=== PATIENT | male | born 1955 | race Caucasian/White ===

== ENCOUNTER → 2019-07-16 12:55 | Outpatient (CLI) | payer MEDICARE, SELFPAY ==
--- NOTE | 2019-07-16 13:05 | RAD_ITS ---
STUDY: SWALLOWING STUDY REASON FOR EXAM: Male, 64 years old. Dysphagia. TECHNIQUE: The examination was performed with Speech Pathology in attendance. Under fluoroscopic observation, the patient ingested thin barium, thick barium, barium pudding, and barium coated cracker. FLUOROSCOPY TIME: 1:25 minutes/seconds. [id number] images were obtained. RADIOLOGIST INVOLVEMENT: Radiologist was present and providing direct supervision. COMPARISON: None. FINDINGS: The following was observed during swallowing of the various mixtures of barium: Thin Barium: Transient penetration with ejection upon ingestion of thin liquids. Barium Pudding: There was no evidence of aspiration or laryngeal penetration. Barium Coated Cracker: There was no evidence of aspiration or laryngeal penetration. RAD/Swallowing Function w/Video IMPRESSION: Transient penetration with ejection upon ingestion of thin liquids. The swallow study findings were discussed with the patient by the speech pathologist at the conclusion of the examination. Please see speech pathology report for more information and recommendations. Electronically Signed: Kale Sarmiento, at 13:51 EDT , Service support ,
--- NOTE | 2019-07-16 13:07 | SP.MBSS_ITS ---
PRIMARY / SECONDARY DIAGNOSIS: Aspiration (T17.920A) REFERRING PHYSICIAN: Dr. Mccracken CURRENT DIET: regular textures/thin liquids DENTITION: natural dentition w/ permanent caps MENTAL STATUS: WFL for participation in MBS RESPIRATORY STATUS: oxygenating on room air PREVIOUS MODIFIED BARIUM SWALLOW STUDY: n/a REASON FOR REFERRAL: The patient was referred by Dr. Darrel Mccracken w/ a referring diagnosis of Aspiration. The patient reports that he has had pneumonia twice within the past 1.5 years w/ the most recent occurrence approximately 6 months ago. The patient has GERD which he reports to be well controlled w/ medication and sleeps on an adjustable bed inclined at 45-75 degrees. Additionally, an intermittent wet vocal quality was noted by this QUALITY CONTROL ASSISTANT during review of history w/ the patient reporting that he is a chronic throat clearer d/t sensation of ?tickling in his throat? along w/ ?gurgling? in throat when sleeping at night. MEDICAL HISTORY: limited history provided by patient GERD, arthritis s/p joint replacements, recurrent pneumonia STUDY FINDINGS: Patient participated in a Modified Barium Swallow (MBS) study on 07/16/2019. Dr. Sarmiento was the radiologist present for this evaluation. This study was recorded in the lateral view and images were sent to PACs for storage. The following consistencies were presented to this patient for analysis of oropharyngeal swallow function: thin liquid liquid, pudding and regular texture Janay Doone shortbread cookie. Results of the MBS are as follows: PENETRATION / ASPIRATION SCALE (SCHAEFFER): 1 = does not enter airway 2 = enters airway/above vocal folds/ejected 3 = enters airway/above vocal folds/not ejected 4 = enters airway/contacts vocal folds/ejected 5 = enters airway/contacts vocal folds/not ejected 6 = enters airway/below vocal folds/ejected 7 = enters airway/below vocal folds/not ejected despite effort 8 = enters airway/below vocal folds/no effort PENETRATION / ASPIRATION SCALE (SCORE): 1. Thin liquid 5mL via spoon: 1 2. Thin liquid 5mL via spoon: 1 3. Thin liquid single sip via cup (large volume noted): 2 4. Thin liquid single sip via cup (instructed to take smaller sip): 2 5. Thin liquid single sip via straw: 2 6. Thin liquid sequential swallows via cup: 2 7. Thin liquid single sip via cup w/ chin tuck: 2 8. Puddin 9. ? shortbread cookie coated in barium puddin 10. Thin liquid single sip via cup (instructed to take a very small sip): 6 IMPRESSION ORAL PHASE CHARACTERIZED BY: LABIAL SEAL: no labial escape TONGUE CONTROL DURING BOLUS MANIPULATION: cohesive bolus between tongue to palatal seal BOLUS PREPARATION / MASTICATION: timely and efficient chewing and mashing BOLUS TRANSPORT / LINGUAL MOTION: brisk tongue motion ORAL RESIDUE: trace residue lining oral structures PHARYNGEAL PHASE CHARACTERIZED BY: INITIATION OF PHARYNGEAL SWALLOW: bolus head in pyriforms at first hyoid excursion SOFT PALATE ELEVATION: no bolus between soft palate and pharyngeal wall LARYNGEAL ELEVATION: partial superior movement of thyroid cartilage/partial approximation of arytenoids cartilage to epiglottic petiole ANTERIOR HYOID EXCURSION: complete anterior movement EPIGLOTTIC MOVEMENT: complete epiglottic inversion LARYNGEAL VESTIBULE CLOSURE AT HEIGHT OF SWALLOW: complete laryngeal vestibule closure with no air/contrast in laryngeal vestibule PHARYNGEAL STRIPPING WAVE: pharyngeal stripping wave present / complete PHARYNGOESOPHAGEAL SEGMENT OPENING: complete distension and complete duration with no obstruction of flow TONGUE BASE RETRACTION: trace column of contrast between tongue base and posterior pharyngeal wall PHARYNGEAL RESIDUE: trace residue within or on pharyngeal structures ESOPHAGEAL PHASE CHARACTERIZED BY: ESOPHAGEAL BOLUS CLEARANCE IN THE UPRIGHT POSITION: complete clearance; esophageal coating EFFECTS OF TREATMENT STRATEGIES ATTEMPTED: CHIN TUCK POSTURE = ineffective REDUCED LIQUID BOLUS SIZE = ineffective USE OF STRAW = ineffective INTERPRETATION OF RESULTS Patient presents with mild oropharyngeal dysphagia (R13.12). The oral phase is grossly within normal limits w/ sufficient oral containment of liquids and solids, timely mastication and prompt lingual motion for A-P bolus transit. The pharyngeal phase is primarily marked by delayed pharyngeal swallow onset timing resulting in suboptimal bolus location upon swallow onset contributing to consistent laryngeal vestibule penetration before and during the swallow across all liquid trials consumed, regardless of mode/rate of consumption or postural strategies implemented. One instance of scant penetration entered along the posterior wall of the laryngeal vestibule from the pyriform sinuses before swallow onset w/ trace contrast undercoating the vocal folds transiently before complete ejection w/ swallow completion. The esophageal phase was unremarkable. Compensatory strategies trialed under fluoroscopy, including reduction in liquid bolus volume, liquid consumption via cup vs. straw, chin tuck posture, were all found to be ineffective to improve laryngeal vestibule closure or swallow onset timing. Although the patient was not noted to aspirate during this study, it is possible that aspiration does occur intermittently due to the consistency of laryngeal vestibule penetration identified. If scant contrast were to remain w/in the laryngeal vestibule post deglutition, it is plausible that it could accumulate w/ across swallow and result in delayed aspiration. This could likely be the cause of the patient?s recurrent pneumonia/pulmonary changes, frequent throat clearing and wet vocal quality. RECOMMENDATIONS DIET TEXTURE RECOMMENDATIONS: regular textures/thin liquids COMPENSATORY STRATEGIES RECOMMENDED: seated upright at 90 degrees during PO intake and remain upright for 30-60 minutes post meal (GERD precaution) NEED FOR REPEAT MBS: Yes, only if symptoms worsen and further objective assessment is warranted NEED FOR SKILLED SPEECH-LANGUAGE INTERVENTION TARGETING DYSPHAGIA: Yes, this patient requires intensive skilled speech-language intervention targeting training/instruction of recommended oropharyngeal strengthening exercises to facilitate improved swallow onset timing and laryngeal vestibule closure to be completed as an outpatient. ADDITIONAL COMMENTS/RECOMMENDATIONS: Results and recommendations were discussed with the Patient immediately following MBS completion. Images were also reviewed with the Patient to improve comprehension of the deficits in swallow function identified and the need for outpatient dysphagia services to improve swallow onset timing and laryngeal vestibule closure. The patient verbalized understanding and agreement with all recommendations and education provided. A copy of the MBS on DVD was provided to the patient following completion of a signed release of information from medical records this date. IMAGE COUNT: [id number]
== END ==
PROVIDERS: Family Provider Family Medicine; PCP Family Medicine; Referring Provider Internal Medicine Gastroenterology; Visit Provider Internal Medicine Gastroenterology
DX: T17.920A Food in respiratory tract, part unspecified causing asphyxiation, initial encounter (principal)
CPT/HCPCS: 74230; 92611

== ENCOUNTER 2019-08-31 09:48 | Day surgery (SDC) | payer MEDICARE, SELFPAY ==
[2019-08-31] VITALS (8 sets, daily range): BP systolic 137–166; BP diastolic 66–90; PULSE 47–76; RESP 16–18; TEMP 36.9–37.5; O2SAT 98–100; BMI 41.3
[2019-08-31] MEDS: Cefazolin 2 GM in 0.9% Normal Saline 100 ML IV (10:23)
[2019-08-31] MEDS: Lactated Ringers 1,000 ML 100 ML IV (10:24)
--- NOTE | 2019-08-31 11:00 | RAD_ITS ---
PROCEDURE: Thoracolumbar stimulator insertion. DATE OF EXAMINATION: August 31, 2019 INDICATION: Male, 64 years old. Chronic back pain. FLUOROSCOPY TIME (if supplied): (8:52) minutes/seconds Intraoperative fluoroscopic services provided for thoracolumbar stimulator insertion. The tip of the stimulator device is at the T7-T8 level. RAD/Lumbar Spine 2 or 3 Views IMPRESSION: Fluoroscopic services provided for insertion of the thoracolumbar stimulator device with the tip of the electrodes at the T7-T8 level. Electronically Signed: Kale Sarmiento, at 15:57 EDT , Service support ,
[2019-08-31] MEDS: Bupivacaine 0.25% 30 ML Vial (11:13)
[2019-08-31] MEDS: 0.9% Normal Saline (Pres. free 10 ML Vial (11:13)
--- NOTE | 2019-08-31 14:02 | OP.PCM_ITS ---
Report of Operation Date of Procedure: 08/31/19 Description of Surgical Findings:: Pre-Operative Diagnosis: Lumbosacral radiculopathy, lumbosacral degenerative disc disease, lumbosacral spinal stenosis, lumbosacral spondylosis Post-Operative Diagnosis: Lumbosacral radiculopathy, lumbosacral degenerative disc disease, lumbosacral spinal stenosis, l lumbosacral spondylosis Surgery/Procedure Performed:: 1-Spinal cord stimulator thoracal lumbar leads permanent placement x2,. 2-spinal cord stimulator generator implant. 3- fluoroscopic guidance Description of Surgical Findings:: PROCEDURES: 1. Spinal cord stimulator thoracolumbar leads placement x2 #2 spinal cord stimulator Medtronic intellus generator placement #3 spinal cord stimulator generator pocket creation at the left gluteal region #4 spinal cord stimulator simple programming #5 fluoroscopic guidance PREOPERATIVE DIAGNOSES: Lumbosacral radiculopathy, lumbosacral degenerative disc disease, lumbosacral spinal stenosis, postlaminectomy syndrome of the lumbar spine POSTOPERATIVE DIAGNOSES: Lumbosacral radiculopathy, lumbosacral degenerative disc disease, lumbosacral spinal stenosis, postlaminectomy syndrome of the lumbar spine ANESTHESIA: MAC COMPLICATIONS: None BLOOD LOSS: Minimal Implanted device: Spinal cord stimulator lead lot number# [id number], lead #2 lot number#[id number] Medtronic spinal cord stimulator generator intellus serial number # [id number] PROCEDURE IN DETAIL: History and physical today was reviewed. Risks and benefits of procedure explained. The patient understood, agreed to procedure, informed consent was obtained. IV inserted per routine protocol. The patient was taken to the operating room, placed in the prone position with a pillow positioned underneath the abdomen. A 2 g of Ancef IV piggyback was infused per anesthesia. The lower back and left gluteal area was prepped and draped in a sterile fashion using iodine x3. The C-arm was brought in position for AP view at the L1-2 vertebral bodies under direct visualization fluoroscopy on a true AP view the L1-2 interlaminar space was identified skin and subcutaneous tissue and size approximately 10 cc of a mix of 2% lidocaine and 0.25% Marcaine using a 25- gauge regular needle followed by a 25-gauge 3-1/2 inch spinal needle towards the interlaminar space at L1-2, the skin and subcutaneous tissue were then anesthetized and using an 11-gauge blade was then taken down to the skin and subcutaneous tissue using a 14-gauge 3-1/2 inch Touhy needle provided by the [employer] kit the needle was passed through the skin towards the interlaminar space at L1-2 and a paramedian approach the needle was then advanced under direct visualization fluoroscopy towards the interlaminar space at L1-2 [id number] technique was then carried to air towards the interlaminar space at L3-4 once the tip of the needle was in the epidural space and loss of resistance was encountered to air and after confirmation of AP as well as oblique view of the spinal cord stimulator lead was then advanced under direct visualization fluoroscopy to be at the tip of the lead at T8 and the bottom of the lead around mid T10 after confirmation of AP as well as lateral view to confirm correct placement of the lead in the posterior compartment of the epidural space the previous procedure was then repeated to a level above at L2-3 interlaminar space, positive CSF the needle was then removed and a second attempt was made at the same level L1-2 the second lead was then inserted under direct visualization with fluoroscopy to be at the mid T8 and mid T10 area the leads were were then connected to the external neurostimulator and patient was then awakened to confirm satisfactory coverage of the painful area once satisfactory coverage was then achieved the stylette of each needle was then removed and the skin and subcutaneous tissue on to the left of the paramedian needles was then taken anesthetized with a total of 20 cc of the previous mixture of 0.25% Marcaine and 2% lidocaine using a 25-gauge regular needle the incision was then taken down through the skin and subcutaneous tissue towards the fascia making sure hemostasis was then maintained via cautery the spinal cord stimulator leads were then passed through the above incision and secured using the bitewing and sutured down with a 2-0 nylon to the fascia at that level the spinal cord stimulator leads were then tunneled via a tunneler provided by the [employer]tronic kit towards the previously incised spinal cord stimulator battery at the left gluteal region skin and subcutaneous tissue were anesthetized with approximately 10 cc of a mix of 2% lidocaine and 0.25% Marcaine using a 25 gauge regular needle, skin and subcutaneous tissue was then taken down with the 11- gauge blade hemostasis was maintained with Bovie and direct pressure the incision was then taken down to the fascia and the battery was then visualized the 2-0 nylon sutures that were the spinal cord stimulator leads the upper lead was then marked the new until spinal cord stimulator battery was then provided Via [employer] kit the battery was then reattached of the spinal cord stimulator make ensure that the top lead is attached to the top position from 0-7 electrodes and the bottom from 8-15 electrodes once impedance was then checked to be in the proper average number the intellus battery was then inserted into the pocket and impedance with when checked again the pocket was then inspected to confirm hemostasis in place, the intellus battery was then secured to the fascia using a 2-0 silk to the upper and lower eyes of the battery confirming an upward writing of the intellus facing posterior, once complete confirmation the battery was then placed in the position and the the mid paramedian and the gluteal incisions were then closed primarily through a 3-0 Vicryl in a interrupted fashion followed by a 4-0 Vicryl to the skin, hemostasis was then maintained during the procedure the skin was then covered with a Steri-Strips an d bacitracin patient was then returned into the supine position in a stable condition and returned to recovery in a stable condition patient experienced no signs or symptoms of intrathecal or intravascular injection patient experienced no paresthesia the procedure was completed without any apparent difficulty any complication the patient appeared to tolerate well ESTIMATED BLOOD LOSS: Minimal less than 25 mL ASSESSMENT AND PLAN: This is an 64-year-old male with lumbosacral radiculopathy, lumbosacral degenerative disc disease lumbosacral spinal stenosis status post 1. Spinal cord stimulator thoracolumbar leads placement x2 #2 spinal cord stimulator Medtronic intellus generator placement #3 spinal cord stimulator generator pocket creation at the left gluteal region #4 spinal cord stimulator simple programming and fluoroscopic guidance patient will continue her current medications a prescription was provided to the patient for Keflex 500 mg 1 p.o. every 8 hours for 7 days postop instruction were given in writing to the patient as well as verbally and in writing to his , patient will follow approximately 1 week for reevaluation.
== END 2019-08-31 15:41 | disposition home or self-care (01) ==
LOC: SDC 09:49 → AC 09:55
PROVIDERS: Family Provider Family Medicine; PCP Family Medicine; Referring Provider Anesthesiology Pain Medicine; Visit Provider Anesthesiology Pain Medicine
PROC: (CPT 63685; principal; 2019-08-31 10:45)
DX: Z45.42 Encounter for adjustment and management of neurostimulator (principal); M96.1 Postlaminectomy syndrome, not elsewhere classified; M47.27 Other spondylosis with radiculopathy, lumbosacral region; M51.17 Intervertebral disc disorders with radiculopathy, lumbosacral region; M46.96 Unspecified inflammatory spondylopathy, lumbar region; M48.07 Spinal stenosis, lumbosacral region; M51.36 Other intervertebral disc degeneration, lumbar region; M46.1 Sacroiliitis, not elsewhere classified; I10 Essential (primary) hypertension; E78.00 Pure hypercholesterolemia, unspecified; F41.9 Anxiety disorder, unspecified; M19.90 Unspecified osteoarthritis, unspecified site; G47.30 Sleep apnea, unspecified; K44.9 Diaphragmatic hernia without obstruction or gangrene; K21.9 Gastro-esophageal reflux disease without esophagitis; L40.9 Psoriasis, unspecified; Z87.01 Personal history of pneumonia (recurrent); Z79.891 Long term (current) use of opiate analgesic; Z79.899 Other long term (current) drug therapy; Z87.891 Personal history of nicotine dependence
CPT/HCPCS: 63650 ×2; 63685; 95971; 72100; 76000; C1778; C1820; J7120; J3490

== ENCOUNTER → 2023-03-27 | Outpatient (CLI) | payer MEDICARE, SELFPAY ==
--- NOTE | 2023-03-27 11:20 | MRI_ITS ---
STUDY: MRI CERVICAL SPINE WITHOUT CONTRAST REASON FOR EXAM: Male, 67 years old. STENOSIS, RT HAND PAIN/NUMBNESS TECHNIQUE: Standardized fat and water weighted pulse sequences were obtained in the sagittal and axial planes. COMPARISON: None FINDINGS: Normal foramen magnum and brainstem-cervical cord junction. Normal craniovertebral junction. Normal anterior atlantoaxial articulation. Normal odontoid process. Mild straightening of the C-spine curvature. Normal vertebral bodies and posterior osseous elements. C2-3: Normal endplates. Normal disc height, signal and morphology. Normal central canal and intervertebral neural foramina. C3-4: Prominent reactive sclerosis of the C3 vertebral body underneath the C3 inferior endplate. Normal C4 superior endplate. Moderate disc space height narrowing. Mild ventral extradural defect due to bone spurs. Normal central canal. Moderate stenosis of the left intervertebral neural foramen. Mild stenosis of the right intervertebral neural foramen. C4-5: Prominent anterior marginal spurs. Normal endplates. Moderate disc space height narrowing. Normal central canal and left intervertebral neural foramen. Moderately pronounced stenosis of the right intervertebral neural foramen. C5-6: Mild Modic type II degenerative vertebral marrow fat infiltration underneath the vertebral endplates. Moderate disc space height narrowing. Mild ventral extradural defect due to bone spurs. Normal central canal and left intervertebral neural foramen. Moderately pronounced stenosis of the right intervertebral neural foramen. C6-7: Mild Modic type II degenerative vertebral marrow fat infiltration underneath the vertebral endplates. Moderate disc space height narrowing. Normal central canal and intervertebral neural foramina. C7-T1: Normal endplates. Pronounced disc space height narrowing. Normal central canal. Moderate stenosis of right intervertebral neural foramen. Mild stenosis of the left intervertebral neural foramen. T1-T2: Normal endplates. Normal disc height, signal and morphology. Normal central canal and left intervertebral neural foramen. Pronounced stenosis of the right intervertebral neural foramen due to pronounced right degenerative facet arthropathy. T2-T3: (Sagittal only). Normal endplates. Normal disc height. Minimal degenerative retrolisthesis of T12 on T3. Normal central canal and intervertebral neural foramina. Moderate bilateral degenerative facet arthropathy. T3-T4: (Sagittal only). Modic type II degenerative vertebral marrow fat infiltration underneath the vertebral endplates. Mild ventral extradural defect due to bone spurs. Normal. Moderately pronounced stenosis of the left intervertebral neural foramen. Moderate stenosis of the right intervertebral neural foramen. T4-T5: (Sagittal only). Modic type II degenerative vertebral marrow fat infiltration is underneath the vertebral endplates. Pronounced disc space height narrowing. Normal central canal. Moderate stenosis of the intervertebral neural foramina. T5-T6: (Sagittal only). Normal endplates. Moderate disc space height narrowing. Normal central canal and intervertebral neural foramina. Motion degradation artifacts. No obvious intrinsic signal abnormality of the cervical spinal cord. Spinal cord is normal in size and configuration. Normal included portions of the upper thoracic spinal cord, brainstem and cerebellum. Normal visualized soft tissue structures. MRI/Spine Cervical (Routine) IMPRESSION: 1. Moderate stenosis of the left C3-C4 intervertebral neural foramen due to osteophytic encroachment. 2. Moderately pronounced stenosis of the right C5-C6 intervertebral neural foramina due to osteophytic encroachment. 3. Moderate stenosis of the right C7-T1 intervertebral neural foramina due to osteophytic encroachment. 4. Pronounced stenosis of the right T1-T2 intervertebral neural foramen due to osteophytes arising from pronounced right degenerative facet arthropathy. 5. Minimal degenerative retrolisthesis of T2 on T3. 6. Moderately pronounced stenosis of the left T3-T4 intervertebral neural foramen and moderate stenosis of the right T3-T4 intervertebral neural foramen due to osteophytic encroachment. 7. Moderate stenosis of the T4-T5 intervertebral neural foramina due to osteophytic encroachment. 8. Limited visualization of cervical spinal cord due to motion. No suspicious cord intrinsic signal abnormality. COMMENT: CT cervical spine is superior in the visualization of the osteophytes of the cervical spine and cervical spinal stenosis. Electronically Signed: Navin Davison MD at 16:25 EDT ,
== END | disposition home or self-care (01) ==
LOC: MRI 11:03
PROVIDERS: PCP Family Medicine; Referring Provider Anesthesiology Pain Medicine; Visit Provider Anesthesiology Pain Medicine
DX: M48.02 Spinal stenosis, cervical region (principal)
CPT/HCPCS: 72141